=== PATIENT | female | born 1960 | race Hispanic/Latino ===

== ENCOUNTER 2018-01-29 03:31 | Emergency (ER) | payer SELFPAY ==
[2018-01-29 04:29] LABS: Absolute Lymphocytes (CBC) 1.8 K/uL (0.7-4.9); Absolute Monocytes 0.4 K/uL (0.1-1.3); Absolute Neutrophil 4.1 K/uL (1.8-8.0); Basophils % 0.3 % (0-1.3); Eosinophils % 1.4 % (0-4.4); Hematocrit 39.3 % (36.0-45.0); Lymphocytes % 28.4 % (15.3-44.8); MCV 89.8 fL (80-100); MPV 9.3 fL (7.6-11.3); Monocytes % 6.1 % (3.3-12.3); RBC Red Blood Cell Count 4.38 M/uL (3.86-4.86)
[2018-01-29 04:36] LABS: Urine Appearance CLEAR; Urine Bilirubin NEGATIVE (NEG); Urine Blood NEGATIVE (NEG); Urine Color YELLOW; Urine Glucose NEGATIVE (NEG); Urine Protein NEGATIVE (NEG); Urine Specific Gravity <=1.005 (1.005-1.030); Urine Urobilinogen 0.2 mg/dL (0.2-1.0); Urine pH 6.5 (5.0-7.0)
[2018-01-29 04:38] LABS: Urine Microscopic Reflex ORDER UMIC
[2018-01-29 04:44] LABS: ALT/SGPT 38 U/L (12-78); AST/SGOT 23 U/L (15-37); Alkaline Phosphatase 99 U/L (45-117); BUN Blood Urea Nitrogen 7 mg/dL (7-18); Bicarbonate 27 mmol/L (21-32); Bilirubin Direct 0.3 mg/dL (0-0.2); Glucose Level 113 mg/dL (74-106); Lipase 146 U/L (73-393); Potassium 3.2 mmol/L (3.5-5.1); Sodium Level 144 mmol/L (136-145)
[2018-01-29 05:43] LABS: Urine Bacteria <20 /HPF (<20); Urine Culture Reflex Order REFLEXED; Urine RBC NONE SEEN /HPF (NONE SEEN)
[2018-01-29 05:59] LABS: Urine Blood TRACE (NEG); Urine Glucose NEGATIVE (NEG); Urine Protein NEGATIVE (NEG)
--- NOTE | 2018-01-29 06:02 | ER ---
Nurse's Notes [facility] Name: Jackie Bray Age: 57 yrs Sex: Female : 1960 Arrival Date: 01/29/2018 Time: 03:37 Bed 5 Private MD: Diagnosis: Abdominal and pelvic pain;Constipation, unspecified Presentation: 01/29 03:39 Presenting complaint: Patient states: Bilateral lower abdominal pain and constipation cc3 since 3-4 days. Patient was seen in [place] 5 days back and was prescribed with medicine but medicine is not effective as per the patient. Transition of care: patient was not received from another setting of care. Onset of symptoms was January 24, 2018. Risk Assessment: Do you want to hurt yourself or someone else? Patient reports no desire to harm self or others. Initial Sepsis Screen: Does the patient meet any 2 criteria? No. Patient's initial sepsis screen is negative. Does the patient have a suspected source of infection? No. Patient's initial sepsis screen is negative. Care prior to arrival: None. 03:39 Method Of Arrival: Ambulatory cc3 03:39 Acuity: SEAN 3 cc3 Triage Assessment: 03:39 General: Appears in no apparent distress. comfortable, Behavior is calm, cooperative, cc3 appropriate for age. Pain: Complains of pain in lower abdominal pain. EENT: No signs and/or symptoms were reported regarding the EENT system. Neuro: Level of Consciousness is awake, alert, obeys commands, Oriented to person, place, time, situation, Appropriate for age. Cardiovascular: Denies chest pain. Respiratory: Airway is patent Respiratory effort is even, unlabored, Respiratory pattern is regular, symmetrical. GI: Abdomen is round non-distended, Reports lower abdominal pain, constipation, since 3-4 days. : No signs and/or symptoms were reported regarding the genitourinary system. Derm: No signs and/or symptoms reported regarding the dermatologic system. Musculoskeletal: Circulation, motion, and sensation intact. Range of motion: intact in all extremities. Historical: - Allergies: 03:39 No Known Allergies; cc3 - PMHx: 03:39 None; cc3 - PSHx: 03:39 ; cc3 - Immunization history:: Adult Immunizations not up to date. - Social history:: Smoking status: Patient/guardian denies using tobacco, never smoked. - Ebola Screening: : No symptoms or risks identified at this time. Screenin:39 Abuse screen: Denies threats or abuse. Denies injuries from another. Nutritional cc3 screening: No deficits noted. Tuberculosis screening: No symptoms or risk factors identified. Fall Risk Ambulatory Aid- None/Bed Rest/Nurse Assist (0 pts). Gait- Normal/Bed Rest/Wheelchair (0 pts) Mental Status- Oriented to own ability (0 pts). Assessment: 03:39 General: see triage assessment. cc3 03:39 GI: Bowel sounds present X 4 quads. Abd is soft and non tender. cc3 04:29 Reassessment: Patient appears in no apparent distress at this time. Patient and/or cc3 family updated on plan of care and expected duration. Pain level reassessed. Patient is alert, oriented x 3, equal unlabored respirations, skin warm/dry/pink. 05:22 Reassessment: Patient appears in no apparent distress at this time. Patient and/or cc3 family updated on plan of care and expected duration. Pain level reassessed. Patient is alert, oriented x 3, equal unlabored respirations, skin warm/dry/pink. Patient came back from CT scan department. 06:10 Reassessment: Patient appears in no apparent distress at this time. Patient and/or cc3 family updated on plan of care and expected duration. Pain level reassessed. Patient is alert, oriented x 3, equal unlabored respirations, skin warm/dry/pink. Dr. Tsang discharged the patient home with prescription given. IV cannula removed and patient left ER vitally stable and ambulatory with her . Vital Signs: 03:39 BP 155 / 75; Pulse 78; Resp 17 S; Temp 97.9(O); Pulse Ox 100% on R/A; Weight 58.97 kg cc3 (R); Height 5 ft. 5 in. (165.10 cm) (R); 04:30 BP 133 / 61; Pulse 66; Resp 17 S; Pulse Ox 98% on R/A; cc3 05:23 BP 123 / 55; Pulse 76; Resp 19 S; Pulse Ox 100% ; cc3 06:00 BP 125 / 64; Pulse 73; Resp 17 S; Pulse Ox 100% on R/A; cc3 03:39 Body Mass Index 21.63 (58.97 kg, 165.10 cm) cc3 ED Course: 03:37 Patient arrived in ED. am2 03:39 Arm band placed on left wrist. Patient notified of wait time. cc3 03:39 Patient has correct armband on for positive identification. Bed in low position. Call cc3 light in reach. Side rails up X 1. telemetry monitor on. Pulse ox on. NIBP on. 03:48 Ericka Coelho is Primary Nurse. cc3 03:54 Triage completed. cc3 03:57 El Tsang MD is Attending Physician. tw4 04:05 Inserted saline lock: 20 gauge in left antecubital area, using aseptic technique. Blood cc3 collected. 05:[address] via wheelchair. kw1 05:18 CT completed. Patient tolerated procedure well. Patient moved back from [place]. kw1 06:10 No provider procedures requiring assistance completed. IV discontinued, intact, cc3 bleeding controlled, No redness/swelling at site. Pressure dressing applied. Administered Medications: No medications were administered Outcome: 06:01 Discharge ordered by . tw4 06:10 Discharged to home ambulatory, with family. cc3 06:10 Condition: stable 06:10 Discharge instructions given to patient, family, Instructed on discharge instructions, follow up and referral plans. medication usage, Demonstrated understanding of instructions, follow-up care, medications, Prescriptions given X 1. 06:14 Patient left the ED. cc3 Addendum: 02/04/2018 09:06 Addendum: Culture Results: Positive urine culture. Phone call Attempt #1 no answer, s s Left VM. 09:06 Addendum: Culture Results: Patient was not prescribed antibiotics at discharge. Report s s given to IVON for further evaluation and then to decommissioning well site manager for follow up with patient. Certified letter sent to listed address for patient. Signatures: Mayelin Waggoner RN RN Alla Bloom am2 Fior Figueroa kw1 El Tsang MD MD tw4 Ericka Coelho cc3 Corrections: (The following items were deleted from the chart) 01/29 05:32 05:23 Pulse 76bpm; Resp 19bpm; Spontaneous; Pulse Ox 100%; cc3 cc3
--- NOTE | 2018-01-29 06:02 | EDPHYS ---
Physician Documentation [facility] Name: Jackie Bray Age: 57 yrs Sex: Female : 1960 Arrival Date: 01/29/2018 Time: 03:37 Bed 5 Private MD: ED Physician El Tsang HPI: 01/29 04:40 This 57 yrs old Female presents to ER via Ambulatory with complaints of tw4 Abdominal Pain, Fever, Constipation. 04:42 The patient presents with abdominal pain. The patient presents with abdominal pain in tw4 the lower abdomen. Onset: The symptoms/episode began/occurred 2 month(s) ago, and became worse 3 day(s) ago. The symptoms do not radiate. Associated signs and symptoms: none. The symptoms are described as dull. Modifying factors: The symptoms are alleviated by nothing, the symptoms are aggravated by nothing. Severity of pain: At its worst the pain was moderate in the emergency department the pain is unchanged. The patient has not experienced similar symptoms in the past. Historical: - Allergies: 03:39 No Known Allergies; cc3 - PMHx: 03:39 None; cc3 - PSHx: 03:39 ; cc3 - Immunization history:: Adult Immunizations not up to date. - Social history:: Smoking status: Patient/guardian denies using tobacco, never smoked. - Ebola Screening: : No symptoms or risks identified at this time. ROS: 04:42 Constitutional: Negative for fever, chills, and weight loss, Eyes: Negative for injury, tw4 pain, redness, and discharge, Cardiovascular: Negative for chest pain, palpitations, and edema, Respiratory: Negative for shortness of breath, cough, wheezing, and pleuritic chest pain. 04:42 MS/Extremity: Negative for injury and deformity, Skin: Negative for injury, rash, and discoloration. 04:42 Abdomen/GI: Positive for abdominal pain, constipation, Negative for nausea and vomiting, nausea, vomiting, and diarrhea, nausea, vomiting. Exam: 04:42 Constitutional: This is a well developed, well nourished patient who is awake, alert, tw4 and in no acute distress. Head/Face: Normocephalic, atraumatic. Chest/axilla: Normal chest wall appearance and motion. Nontender with no deformity. No lesions are appreciated. Cardiovascular: Regular rate and rhythm with a normal S1 and S2. No gallops, murmurs, or rubs. Normal PMI, no JVD. No pulse deficits. Respiratory: Lungs have equal breath sounds bilaterally, clear to auscultation and percussion. No rales, rhonchi or wheezes noted. No increased work of breathing, no retractions or nasal flaring. 04:42 MS/ Extremity: Pulses equal, no cyanosis. Neurovascular intact. Full, normal range of motion. Neuro: Awake and alert, GCS 15, oriented to person, place, time, and situation. Cranial nerves II-XII grossly intact. Motor strength 5/5 in all extremities. Sensory grossly intact. Cerebellar exam normal. Normal gait. Psych: Awake, alert, with orientation to person, place and time. Behavior, mood, and affect are within normal limits. 04:42 Abdomen/GI: Inspection: abdomen appears normal, Bowel sounds: normal, Palpation: moderate abdominal tenderness, in the suprapubic area. Vital Signs: 03:39 BP 155 / 75; Pulse 78; Resp 17 S; Temp 97.9(O); Pulse Ox 100% on R/A; Weight 58.97 kg cc3 (R); Height 5 ft. 5 in. (165.10 cm) (R); 04:30 BP 133 / 61; Pulse 66; Resp 17 S; Pulse Ox 98% on R/A; cc3 05:23 BP 123 / 55; Pulse 76; Resp 19 S; Pulse Ox 100% ; cc3 06:00 BP 125 / 64; Pulse 73; Resp 17 S; Pulse Ox 100% on R/A; cc3 03:39 Body Mass Index 21.63 (58.97 kg, 165.10 cm) cc3 MDM: 03:57 Patient medically screened. tw4 01/30 05:04 Differential diagnosis: non-specific abd pain, pancreatitis. Data reviewed: vital tw4 signs, nurses notes. Data interpreted: Pulse oximetry: Interpretation: normal. Counseling: I had a detailed discussion with the patient and/or guardian regarding: the historical points, exam findings, and any diagnostic results supporting the discharge/admit diagnosis. 05:04 Special discussion: Based on the patient's Hx, exam, and Dx evaluation, there is no tw4 indication for emergent surgery or inpatient Tx. It is understood by the patient/guardian that if the Sx's persist or worsen they need to return immediately for re-evaluation. I discussed with the patient/guardian in detail that at this point there is no indication for admission to the hospital. It is understood, however, that if the symptoms persist or worsen the patient needs to return immediately for re-evaluation. 01/29 03:57 Order name: Basic Metabolic Panel [facility] 01/29 03:57 Order name: CBC with Diff [facility] 01/29 03:57 Order name: Creatinine for Radiology [facility] 01/29 03:57 Order name: Hepatic Function [facility] 01/29 03:57 Order name: Lipase [facility] 01/29 03:57 Order name: Urinalysis [facility] 01/29 04:29 Order name: Urine Dipstick--Ancillary (enter results) [facility] 01/29 04:38 Order name: CBC with Automated Diff [facility] 01/29 04:38 Order name: Urinalysis; Complete Time: 05:45 EDMS 01/29 05:45 Interpretation: Normal except: UKET 1+; UESTR 1+. [facility] 01/29 04:44 Order name: Creatinine (Radiology Only); Complete Time: 05:44 EDMS 01/29 04:44 Order name: Basic Metabolic Panel; Complete Time: 05:44 EDMS 01/29 05:44 Interpretation: Normal except: K 3.2; GLUC 113. [facility] 01/29 04:44 Order name: Liver (Hepatic) Function; Complete Time: 05:43 EDMS 01/29 05:43 Interpretation: Normal except: BILID 0.3. [facility] 01/29 04:45 Order name: Lipase; Complete Time: 05:44 EDMS 01/29 05:44 Interpretation: Normal except: LIP 146. [facility] 01/29 05:44 Order name: Urine Microscopic Only [facility] 01/29 03:57 Order name: IV Saline Lock; Complete Time: 04:28 [facility] 01/29 03:57 Order name: Labs collected and sent; Complete Time: 04:28 [facility] 01/29 04:39 Order name: CT Abd/Pelvis - W/Contrast [facility] 01/29 05:59 Order name: Urine Dipstick-Ancillary; Complete Time: 06:01 EDMS Administered Medications: No medications were administered Disposition: 01/29/18 06:01 Discharged to Home. Impression: Abdominal and pelvic pain, Constipation, unspecified. - Condition is Stable. - Discharge Instructions: Constipation, Adult, High-Fiber Diet. - Prescriptions for Miralax 17 gram/dose Oral - take 1 packet by ORAL route once daily dilute powder in 8 ounces of water or juice; 1 packet. - Medication Reconciliation Form, Thank You Letter, Antibiotic Education, Prescription Opioid Use form. - Follow up: Private Physician; When: Upon discharge from the Emergency Department; Reason: Further diagnostic work-up, Recheck today's complaints, Continuance of care, Re-evaluation by your physician. Signatures: Dispatcher [employer] El Burroughs MD MD tw4 Ericka Coelho cc3 Corrections: (The following items were deleted from the chart) 01/29 06:02 06:01 01/29/2018 06:01 Discharged to Home. Impression: Abdominal and pelvic pain. tw4 Condition is Stable. Forms are Medication Reconciliation Form, Thank You Letter, Antibiotic Education, Prescription Opioid Use. Follow up: Private Physician; When: Upon discharge from the Emergency Department; Reason: Further diagnostic work-up, Recheck today's complaints, Continuance of care, Re-evaluation by your physician. tw4 06:14 06:02 01/29/2018 06:01 Discharged to Home. Impression: Abdominal and pelvic pain; cc3 Constipation, unspecified. Condition is Stable. Forms are Medication Reconciliation Form, Thank You Letter, Antibiotic Education, Prescription Opioid Use. Follow up: Private Physician; When: Upon discharge from the Emergency Department; Reason: Further diagnostic work-up, Recheck today's complaints, Continuance of care, Re-evaluation by your physician. tw4
--- NOTE | 2018-01-29 08:57 | RAD REPORT ---
EXAM DESCRIPTION: CTAbdomen Pelvis W Contrast - 01/29/2018 6:28 am CLINICAL HISTORY: Abdominal pain. ABD PAIN COMPARISON: No comparisons TECHNIQUE: Biphasic CT imaging of the abdomen and pelvis was performed with 100 ml non-ionic IV cont rast. All CT scans are performed using dose optimization technique as appropriate and may include automated exposure control or mA/KV adjustment according to patient size. FINDINGS: The lung bases are clear. The liver, spleen, pancreas, adrenal glands and kidneys are within normal limits. No bowel obstruction, free air, free fluid or abscess. The appendix is normal. No evidence of signi ficant lymphadenopathy. No suspicious bony findings. IMPRESSION: No acute intra-abdominal or pelvic finding.
== END 2018-01-29 06:14 | disposition home or self-care (01) ==
LOC: ER 03:31
DX: K59.00 Constipation, unspecified (principal)
CPT/HCPCS: 36415; 74177; 80048; 80076; 81003; 81015; 83690; 85025; 87077; 87086; 87088; 87186; 99285; Q9967

== ENCOUNTER 2020-01-07 21:50 | Emergency (ER) | payer SELFPAY ==
--- NOTE | 2020-01-07 23:04 | EDPHYS ---
Physician Documentation [facility] Name: Jackie Bray Age: 59 yrs Sex: Female : 1960 Arrival Date: 01/07/2020 Time: 21:52 Bed 20 Private MD: ED Physician Landry Magaña HPI: 01/06 22:57 This 59 yrs old Female presents to ER via Ambulatory with complaints of High pkl Blood Pressure. 22:57 Onset: The symptoms/episode began/occurred today. Associated signs and symptoms: pkl Pertinent positives: headache. Patient taking Lisinopril 10 mg daily. Historical: - Allergies: 22:09 No Known Allergies; - Home Meds: 22:09 Lisinopril Oral [Active]; - PMHx: 22:09 Hypertension; - PSHx: 22:09 ; - Immunization history:: Adult Immunizations not up to date. - Social history:: Smoking status: Patient/guardian denies using. ROS: 22:57 Eyes: Negative for injury, pain, redness, and discharge, ENT: Negative for injury, pkl pain, and discharge, Neck: Negative for injury, pain, and swelling, Cardiovascular: Negative for chest pain, palpitations, and edema, Respiratory: Negative for shortness of breath, cough, wheezing, and pleuritic chest pain, Abdomen/GI: Negative for abdominal pain, nausea, vomiting, diarrhea, and constipation, Back: Negative for injury and pain, : Negative for injury, bleeding, discharge, and swelling, MS/Extremity: Negative for injury and deformity, Skin: Negative for injury, rash, and discoloration. 22:57 Neuro: Positive for headache. Exam: 22:57 Head/Face: Normocephalic, atraumatic. Eyes: Pupils equal round and reactive to light, pkl extra-ocular motions intact. Lids and lashes normal. Conjunctiva and sclera are non-icteric and not injected. Cornea within normal limits. Periorbital areas with no swelling, redness, or edema. ENT: Nares patent. No nasal discharge, no septal abnormalities noted. Tympanic membranes are normal and external auditory canals are clear. Oropharynx with no redness, swelling, or masses, exudates, or evidence of obstruction, uvula midline. Mucous membranes moist. Neck: Trachea midline, no thyromegaly or masses palpated, and no cervical lymphadenopathy. Supple, full range of motion without nuchal rigidity, or vertebral point tenderness. No Meningismus. Chest/axilla: Normal chest wall appearance and motion. Nontender with no deformity. No lesions are appreciated. Cardiovascular: Regular rate and rhythm with a normal S1 and S2. No gallops, murmurs, or rubs. Normal PMI, no JVD. No pulse deficits. Respiratory: Lungs have equal breath sounds bilaterally, clear to auscultation and percussion. No rales, rhonchi or wheezes noted. No increased work of breathing, no retractions or nasal flaring. Abdomen/GI: Soft, non-tender, with normal bowel sounds. No distension or tympany. No guarding or rebound. No evidence of tenderness throughout. Back: No spinal tenderness. No costovertebral tenderness. Full range of motion. Skin: Warm, dry with normal turgor. Normal color with no rashes, no lesions, and no evidence of cellulitis. MS/ Extremity: Pulses equal, no cyanosis. Neurovascular intact. Full, normal range of motion. Neuro: Awake and alert, GCS 15, oriented to person, place, time, and situation. Cranial nerves II-XII grossly intact. Motor strength 5/5 in all extremities. Sensory grossly intact. Cerebellar exam normal. Normal gait. Vital Signs: 22:03 BP 178 / 89 RA Sitting (auto/lg); Pulse 79; Resp 20 S; Temp 98.6; Pulse Ox 99% on R/A; jp3 Weight 72.57 kg (R); Height 5 ft. 5 in. (165.10 cm); Pain 7/10; 22:30 BP 143 / 75; Pulse 79; wh 23:21 BP 130 / 64; Pulse 70; Resp 18; Pulse Ox 98% on R/A; wh 22:03 Body Mass Index 26.63 (72.57 kg, 165.10 cm) jp3 MDM: 22:05 Patient medically screened. pkl 22:57 Data reviewed: vital signs, nurses notes. ED course: Patient feeling better. Advised to pkl increase Lisinopril to 20 mg daily. Patient and understood instructions. Administered Medications: No medications were administered Disposition: 01/07/20 23:03 Discharged to Home. Impression: Uncontrolled hypertension. - Condition is Stable. - Discharge Instructions: Hypertension, [id number]. - Prescriptions for Lisinopril 20 mg Oral Tablet - take 1 tablet by ORAL route once daily; 90 tablet. - Medication Reconciliation Form, Thank You Letter, Antibiotic Education, Prescription Opioid Use form. - Follow up: Private Physician; When: 1 week; Reason: Re-evaluation by your physician. - Problem is new. - Symptoms have improved. Signatures: Landry Magaña MD MD pkMika Quigley Corrections: (The following items were deleted from the chart) 23:21 23:03 01/07/2020 23:03 Discharged to Home. Impression: Uncontrolled hypertension. wh Condition is Stable. Forms are Medication Reconciliation Form, Thank You Letter, Antibiotic Education, Prescription Opioid Use. Follow up: Private Physician; When: 1 week; Reason: Re-evaluation by your physician. Problem is new. Symptoms have improved. pkl
--- NOTE | 2020-01-07 23:04 | ER ---
Nurse's Notes [facility] Name: Jackie Bray Age: 59 yrs Sex: Female : 1960 Arrival Date: 01/07/2020 Time: 21:52 Bed 20 Private MD: Diagnosis: Uncontrolled hypertension Presentation: 01/06 22:07 Chief complaint: Spouse and/or significant other states: high blood pressure the whole day and head ache that started yesterday. Coronavirus screen: Client denies travel out of the [place] in the last 14 days. At this time, the client does not indicate any symptoms associated with coronavirus-19. Ebola Screen: Patient negative for fever greater than or equal to 101.5 degrees Fahrenheit, and additional compatible Ebola Virus Disease symptoms Patient denies exposure to infectious person. Initial Sepsis Screen: Does the patient meet any 2 criteria? No. Patient's initial sepsis screen is negative. Does the patient have a suspected source of infection? No. Patient's initial sepsis screen is negative. Risk Assessment: Do you want to hurt yourself or someone else? Patient reports no desire to harm self or others. Onset of symptoms was January 07, 2020. 22:07 Method Of Arrival: Ambulatory 22:07 Acuity: SEAN 3 Historical: - Allergies: 22:09 No Known Allergies; - Home Meds: 22:09 Lisinopril Oral [Active]; - PMHx: 22:09 Hypertension; - PSHx: 22:09 ; - Immunization history:: Adult Immunizations not up to date. - Social history:: Smoking status: Patient/guardian denies using. Screenin:10 Abuse screen: Denies threats or abuse. Denies injuries from another. Nutritional screening: No deficits noted. Tuberculosis screening: No symptoms or risk factors identified. Fall Risk None identified. 22:11 VAN Screening: Arm Drift: Patient shows no arm weakness. Patient is VAN negative. Visual Disturbance: No visual disturbance noted. Aphasia: No aphasia noted. Neglect: No neglect noted. Assessment: 22:09 General: Appears in no apparent distress. Behavior is calm, cooperative, appropriate for age. Pain: Complains of pain in top of head and forehead Pain does not radiate. Pain currently is 7 out of 10 on a pain scale. Quality of pain is described as aching, Pain began 1 day ago. Neuro: Level of Consciousness is awake, alert, obeys commands, Oriented to person, place, time, situation, Appropriate for age Pack Operator are equal bilaterally Moves all extremities. Gait is steady, Speech is normal, Facial symmetry appears normal, Intact Reports headache. Cardiovascular: Capillary refill < 3 seconds. Respiratory: Airway is patent Respiratory effort is even, unlabored, Respiratory pattern is regular, symmetrical. GI: Abdomen is flat, non-distended. : No signs and/or symptoms were reported regarding the genitourinary system. EENT: No signs and/or symptoms were reported regarding the EENT system. Derm: Skin is intact, is healthy with good turgor, Skin is pink, warm \T\ dry. normal. Musculoskeletal: Circulation, motion, and sensation intact. 23:21 Reassessment: Patient appears in no apparent distress at this time. No changes from previously documented assessment. Patient and/or family updated on plan of care and expected duration. Pain level reassessed. Patient is alert, oriented x 3, equal unlabored respirations, skin warm/dry/pink. Vital Signs: 22:03 BP 178 / 89 RA Sitting (auto/lg); Pulse 79; Resp 20 S; Temp 98.6; Pulse Ox 99% on R/A; jp3 Weight 72.57 kg (R); Height 5 ft. 5 in. (165.10 cm); Pain 7/10; 22:30 BP 143 / 75; Pulse 79; wh 23:21 BP 130 / 64; Pulse 70; Resp 18; Pulse Ox 98% on R/A; wh 22:03 Body Mass Index 26.63 (72.57 kg, 165.10 cm) jp3 ED Course: 21:52 Patient arrived in ED. cl3 21:54 Mika Mckeon is Primary Nurse. wh 22:05 Landry Magaña MD is Attending Physician. pkl 22:05 Patient has correct armband on for positive identification. Placed in gown. Bed in low jp3 position. Call light in reach. Side rails up X 1. Bengali speaking only; relative in room translating. Warm blanket given. Verbal reassurance given. merchandise examiner on. Pulse ox on. NIBP on. 22:05 Patient maintains SpO2 saturation greater than 95% on room air. jp3 22:08 Triage completed. 22:11 Arm band placed on right wrist. 23:21 No provider procedures requiring assistance completed. Patient did not have IV access during this emergency room visit. Administered Medications: No medications were administered Outcome: 23:03 Discharge ordered by . aida 23:21 Discharged to home ambulatory, with family. 23:21 Condition: stable 23:21 Discharge instructions given to patient, family, Instructed on discharge instructions, follow up and referral plans. medication usage, POC Demonstrated understanding of instructions, follow-up care, medications, POC Prescriptions given X 1. 23:21 Patient left the ED. Signatures: Landry Magaña MD MD pkl Habalo, Winsy Melquiades Almodovar jp3 Isamar Pink cl3
[2020-01-07 23:35] VITALS: TEMP 98.6
[2020-01-07 23:39] VITALS: BP 130/64; O2SAT 98
== END 2020-01-07 23:21 | disposition home or self-care (01) ==
LOC: ER 21:50
DX: I10 Essential (primary) hypertension (principal)
CPT/HCPCS: 99284